=== PATIENT | male | born 1945 | race Caucasian/White ===

== ENCOUNTER 2016-03-19 12:41 | Outpatient (CLI) | payer MEDICARE, OTHER | END 2016-03-19 12:42 | disposition home or self-care (01) | DX: Z13.6 Encounter for screening for cardiovascular disorders (principal) ==

== ENCOUNTER 2016-12-19 13:00 | Outpatient (CLI) | payer MEDICARE, OTHER ==
--- NOTE | 2016-12-19 15:47 | XRAY Report ---
TWO VIEW CHEST: 12/19/2016 CLINICAL INDICATION: Chest discomfort. FINDINGS: Frontal and lateral views of the chest demonstrate a normal cardiac silhouette. The lungs are clear. No effusion or pneumothorax is present. IMPRESSION: NORMAL CHEST. JOB #: [id number] EXT JOB #:[id number]
== END 2016-12-19 13:01 | disposition home or self-care (01) ==
LOC: DI 13:00
PROVIDERS: ATTEND Internal Medicine
DX: R07.89 Other chest pain (principal)
CPT/HCPCS: 71020

== ENCOUNTER 2017-07-23 12:24 | Outpatient (CLI) | payer MEDICARE, OTHER ==
--- NOTE | 2017-07-23 16:08 | CARDIAC PROCEDURE NOTE ---
DATE OF SERVICE: 07/23/2017 Provider: YG Castillo PRIMARY CARE PHYSICIAN: Bhavesh Roach MD PROCEDURE: Cardiac treadmill stress test. PROCEDURE SYMPTOMS: Chest pain with exertion. CARDIAC RISK FACTORS: Include age, hyperlipidemia, and diabetes. PREVIOUS CARDIAC PROCEDURES: ETT. CLINICAL HISTORY: A 72-year-old male without known coronary artery disease. INITIAL RESTING VITAL SIGNS: BP 126/70, heart rate 91, height 72 inches, weight 205 pounds. PROCEDURE AND FINDINGS: The patient identity and date verified. Consent signed. The patient performed treadmill exercise using a Ed protocol, completing 7 minutes 7 seconds, and completing an estimated workload of 9.0 metabolic equivalents. Maximal blood pressure was 178/82 with a heart rate of 135 beats per minute or 90% of maximum predicted heart rate for age. The blood pressure response to exercise was within normal limits. The patient stopped because he was tiring and his shoulders hurt. Resting ECG demonstrated normal sinus rhythm with no abnormality. Maximum ST segment depression was 1 mm and horizontal. There was no ectopy. He revealed mild chest pain beginning about half way through exercise. FINAL IMPRESSION 1. Positive stress electrocardiogram for ischemia by electrocardiographic criteria. 2. Positive stress test clinically for angina. 3. No ectopy nor arrhythmia. 4. Recommend additional cardiac testing. TD: 07/23/2017 14:03 MTDTaylor
[2017-07-27 10:33] VITALS: BP 122/82
--- NOTE | 2017-07-27 16:34 | XRAY Report ---
CARDIOVASCULAR TREADMILL TEST: There was no imaging performed for this exam. Procedure notes and results available in the EMR. BRIGIDA
== END 2017-07-23 12:25 | disposition home or self-care (01) ==
LOC: DI 12:24
PROVIDERS: ATTEND Internal Medicine
DX: R07.9 Chest pain, unspecified (principal)
CPT/HCPCS: 93016; 93017; 93018

== ENCOUNTER 2017-10-23 09:01 | Outpatient (CLI) | payer MEDICARE, OTHER ==
[2017-10-23 10:06] LABS: ALT ALANINE AMINOTRANSFERASE 24 IU/L (10-60); AST ASPARTATE AMINOTRANSFERASE 22 IU/L (10-42); CHOL/HDL RATIO 2.1 (<5.0); CHOLESTEROL 92 mg/dL; HDL CHOLESTEROL 44 mg/dL; LDL CHOLESTEROL,CALCULATED 35 mg/dL; LDL/HDL RATIO 0.8 (<3.6); VLDL CHOLESTEROL 13 mg/dL
== END 2017-10-23 09:02 | disposition home or self-care (01) ==
LOC: LAB 09:01
PROVIDERS: ATTEND Internal Medicine Cardiovascular Disease
DX: E78.4 Other hyperlipidemia (principal); I25.10 Atherosclerotic heart disease of native coronary artery without angina pectoris
CPT/HCPCS: 36415; 80061; 83721; 84450; 84460

== ENCOUNTER 2023-11-03 11:35 | Emergency (ER) | payer MEDICARE, OTHER ==
--- NOTE | 2023-11-03 11:50 | ED Physician Documentation ---
PD HPI Fall - Stated complaint Stated Complaint: BACK PX POST FALL - History obtained from History obtained from: Patient - Additional information Additional information: 78-year-old gentleman with history of coronary disease and stents had a trip and fall last night hitting the ground with his posterior left chest with severe pain in that area. No other injuries. PD PAST MEDICAL HISTORY - Past Medical History Endocrine/Autoimmune: Type 2 diabetes GI: GERD HEENT: Chronic hearing loss Musculoskeletal: Osteoarthritis, Chronic back pain - Past Surgical History General: Appendectomy - Present Medications Home Medications: Ambulatory Orders Medication Instructions Recorded Confirmed Aspirin [Spink Aspirin] 81 mg PO DAILY 11/03/23 11/03/23 Atorvastatin Calcium 40 mg PO DAILY 11/03/23 11/03/23 Metoprolol Succinate [Toprol Xl] 25 mg PO DAILY 11/03/23 11/03/23 metFORMIN [Glucophage] 500 mg PO DAILY 11/03/23 11/03/23 oxyCODONE [Roxicodone] 5 mg PO Q4-6H PRN #30 tablet 11/03/23 - Allergies Allergies/Adverse Reactions: Allergies Allergy/AdvReac Type Severity Reaction Status Date / Time No Known Drug Allergies Allergy Verified 11/03/23 11:51 PD ED PE NORMAL - Vitals Vital signs reviewed: Yes - General General: Alert and oriented X 3, No acute distress - HEENT HEENT: PERRL, EOMI - Neck Neck: Supple, no meningeal sign, No bony TTP - Cardiac Cardiac: RRR, No murmur - Respiratory Respiratory: No respiratory distress, Clear bilaterally - Abdomen Abdomen: Non tender - Back Back: No spinal TTP, Other (To the left posterior chest and the posterior axillary line there is an area of bruising and severe tenderness over the lower ribs.) - Neuro Neuro: Alert and oriented X 3 Results - Vitals Vitals: Vital Signs - 24 hr 11/03/23 11/03/23 11/03/23 11:45 13:51 14:32 Temperature 36.5 C 36.6 C Heart Rate 97 74 72 Respiratory 20 16 15 Rate Blood Pressure 181/79 H 143/76 H 138/80 H O2 Saturation 98 95 95 Oxygen O2 Source Room air - Labs Labs: Laboratory Tests 11/03/23 11/03/23 12:24 12:24 WBC 8.5 RBC 4.74 Hgb 15.4 Hct 45.9 MCV 96.8 H MCH 32.5 H MCHC 33.6 RDW 11.8 L Plt Count 192 MPV 10.9 Neut # (Auto) 6.3 Lymph # (Auto) 1.3 L [place] # (Auto) 0.8 Eos # (Auto) 0.0 Baso # (Auto) 0.1 Absolute Nucleated RBC 0.00 Nucleated RBC % 0.0 Sodium 137 Potassium 4.0 Chloride 102 Carbon Dioxide 29 Anion Gap 6.0 BUN 17 Creatinine 0.9 Estimated GFR (MDRD) 82 L Glucose 162 H Calcium 9.0 Total Bilirubin 2.0 H AST 18 ALT 29 Alkaline Phosphatase 37 L Total Protein 7.0 Albumin 4.2 Globulin 2.8 Albumin/Globulin Ratio 1.5 - Rads (name of study) ct CHEST Relevant Findings:: Final report received (CT chest demonstrates mildly displaced fractures of the left 11th and 12th ribs with L1 and L2 transverse process fractures. Severe coronary calcifications, nonobstructing stone at the inferior pole of the right kidney, 9 mm), EMP independent interpretation of test PD Medical Decision Making - ED course ED course: He presents with left-sided back injuries after a ground-level fall. He has 2 rib fractures and 2 transverse process fractures. Incidental findings including coronary calcifications, right nephrolith etc. were discussed with patient and . Feeling better after narcotic analgesia here and discussed multimodal pain management at home. Given incentive spirometer. Departure - Departure Disposition: 01 Home, Self Care Clinical Impression: Fracture of rib Qualifiers: Encounter type: initial encounter Rib fracture type: multiple ribs Fracture type: closed Laterality: left Qualified Code(s): S22.42XA - Multiple fractures of ribs, left side, initial encounter for closed fracture Lumbar transverse process fracture Qualifiers: Encounter type: initial encounter Fracture type: closed Qualified Code(s): S32.009A - Unspecified fracture of unspecified lumbar vertebra, initial encounter for closed fracture Condition: Good Record reviewed to determine appropriate education?: Yes Instructions: ED Fx Rib Prescriptions: oxyCODONE [Roxicodone] 5 mg PO Q4-6H PRN #30 tablet PRN Reason: Pain Comments: As discussed, you have 2 rib fractures and 2 transverse process fractures. Incidental findings included coronary artery calcifications, a 9 mm right kidney stone and a mild elevation in bilirubin that I think is probably chronic at 2.0. All of these findings should be discussed with your primary care physician in follow-up. I sent the prescription electronically to the [facility] pharmacy here in [place] at the corner of [address] [facility]. In addition to the narcotics you should take Tylenol, 2 extra strength 3-4 times a day as your baseline and lidocaine patches which are available [id number]. Call your doctor to arrange a follow-up appointment, make the next available appointment. In the interim, return anytime if worse or if new symptoms develop. I am prescribing a short course of narcotic pain medication for you. These are potentially dangerous and addictive medications that should be used carefully. These medications may constipate you. Take an dyvi-ysg-wbkfmvs stool softener (docusate) twice daily with plenty of water while taking these medications. If you go 24 hours without a bowel movement, take [id number] miralax, per package instructions. Do not drink or drive while taking these medications. If you received narcotic or sedating medications while in the emergency department, do not drive for 24 hours. Store this medication in a safe, secure place and out of reach of children. It is a violation of federal law to give or sell this medication to another person or to use in a manner other than prescribed. The ED will not refill narcotic prescriptions, including prescriptions lost or stolen. To dispose of unwanted medications: 1. [facility] provides a [facility] box for medication in pill form only (no liquids) 8:00 am to 4:30 p.m. Thursday-Thursday in the lobby of the [facility], [address] [place] [address]. Empty pills into ziplock bag before disposal. Call [phone] for information. 2.[employer] is a free service available to all [facility] residents. Go to [email or web address] Note that many narcotic pain relievers also contain Tylenol/acetaminophen. Please ensure that your total dose of acetaminophen from all sources does not exceed 3 g (3000 mg) per day. Forms: PCP List Discharge Date/Time: 11/03/23 14:36
[2023-11-03] MEDS: IBUPROFEN 800 MG TABLET PO STA (12:07)
[2023-11-03] MEDS: oxyCODONE 5 MG TABLET PO STA (12:07)
[2023-11-03 12:37] LABS: BASOPHILS # (AUTO) 0.1 10^3/uL (0.0-0.1); BASOPHILS % (AUTO) 0.6 %; EOSINOPHILS % (AUTO) 0.4 %; HCT - HEMATOCRIT 45.9 % (42.0-52.0); HGB - HEMOGLOBIN 15.4 g/dL (14.0-18.0); LYMPHOCYTES # (AUTO) 1.3 10^3/uL (1.5-3.5); LYMPHOCYTES % (AUTO) 15.7 %; MEAN CORPUSCULAR HEMOGLOBIN 32.5 pg (27.0-31.0); MEAN CORPUSCULAR HGB CONC 33.6 g/dL (32.0-36.0); MEAN CORPUSCULAR VOLUME 96.8 fL (80.0-94.0); MEAN PLATELET VOLUME 10.9 fL (7.4-11.4); MONOCYTES # (AUTO) 0.8 10^3/uL (0.0-1.0); NEUTROPHILS # (AUTO) 6.3 10^3/uL (1.5-6.6); NEUTROPHILS % (AUTO) 74.1 %; PLT - PLATELET COUNT 192 10^3/uL (130-450); RED BLOOD COUNT 4.74 10^6/uL (4.70-6.10); RED CELL DISTRIBUTION WIDTH 11.8 % (12.0-15.0); WHITE BLOOD COUNT 8.5 x10^3/uL (4.8-10.8)
[2023-11-03 12:44] LABS: ALBUMIN 4.2 g/dL (3.2-5.5); ALBUMIN/GLOBULIN RATIO 1.5 (1.0-2.2); CREATININE 0.9 mg/dL (0.6-1.3)
--- NOTE | 2023-11-03 13:08 | CT Report ---
PROCEDURE: Chest WO INDICATIONS: Post L rib inj TECHNIQUE: A CT scan of the chest was performed. Intravenous contrast media was not administered. Images were re corded and evaluated at appropriate window settings. Reformats: axial MIP of the chest, coronal and s agittal. For radiation dose reduction, the following was used: automated exposure control, adjustment of mA and/or kV according to patient size. COMPARISON: None. FINDINGS: Image quality: Diagnostic. Chest wall and lower neck: No thyroid nodule which requires sonographic follow up. No axillary or sup raclavicular adenopathy by size. Lungs and pleura: No consolidation. No pleural effusions. No pneumothorax. No suspicious pulmonary n odules which require follow up. Mild dependent atelectasis. Mediastinum: Heart size is normal. Severe coronary artery calcifications. No pericardial effusion. No large vessel abnormality. Atherosclerotic vascular calcifications. No mediastinal adenopathy by size criteria. Bones: Mildly displaced left L1 and L2 transverse process fracture. Mildly displaced fractures of the posterior left 11th and 12th ribs. Degenerative changes of the spine. Upper Abdomen: Simple appearing hepatic cysts. Nonobstructing stone at the inferior pole of the right kidney measuring 9 mm.. IMPRESSION: 1.Mildly displaced fractures of the posterior left 11th and 12th ribs. Mildly displaced left L1 and L 2 transverse process fractures. Please note, transverse processes below L2 are not included within th e ysvep-lg-anwe. 2.Severe coronary calcifications. 3.Non obstructing stone at the inferior pole the right kidney measuring 9 mm. Reviewed by: Andrews Fisher MD on 11/03/2023 1:07 PM PDT Approved by: Andrews Fisher MD on 11/03/2023 1:07 PM PDT Station ID: [id number]
--- NOTE | 2023-11-03 13:50 | CT Report ---
PROCEDURE: Lumbar Spine WO INDICATIONS: back inj TECHNIQUE: Noncontrast 3 mm thick sections acquired from the T12 level to the sacrum. Sagittal and coronal refo rmats were constructed. For radiation dose reduction, the following was used: automated exposure co ntrol, adjustment of mA and/or kV according to patient size. COMPARISON: None. FINDINGS: Image quality: Excellent. Bones: Mild dextrocurvature. Grade 1 anterolisthesis of L2 on L3.. No acute vertebral body compressi on fractures. No suspicious lytic or blastic bony lesions. Degenerative changes of the spine, most s evere at L2-L3 and L5-S1 with severe disc height loss, vacuum disc phenomenon, degenerative endplate changes and spurring. Facet arthropathy, most pronounced within the lower lumbar spine. No pars defec ts. Redemonstration of mildly displaced left L1 and L2 transverse process fractures. Mildly displaced lef t posterior 11th and 12th rib fractures. No other acute fractures are seen. Soft tissues: No retroperitoneal masses or hematomas. Visualized aorta is normal in caliber. Athero sclerotic vascular ossifications. Nonobstructing 9 mm stone at the inferior pole of the right kidney. IMPRESSION: 1.Redemonstration of mildly displaced left L1 and L2 transverse process fractures and left posterior 11th and 12th rib fractures. No other acute fractures are seen. 2.Multilevel degenerative changes of the lumbar spine, severe at L2-L3 and L5-S1. Reviewed by: Andrews Fisher MD on 11/03/2023 1:49 PM PDT Approved by: Andrews Fisher MD on 11/03/2023 1:49 PM PDT Station ID: [id number]
[2023-11-03 14:45] VITALS: BP 138/80; O2SAT 95
== END 2023-11-03 14:36 | disposition home or self-care (01) ==
LOC: ED 11:35
DX: S22.42XA Multiple fractures of ribs, left side, initial encounter for closed fracture (principal); S32.019A Unspecified fracture of first lumbar vertebra, initial encounter for closed fracture; S32.029A Unspecified fracture of second lumbar vertebra, initial encounter for closed fracture; W01.190A Fall on same level from slipping, tripping and stumbling with subsequent striking against furniture, initial encounter; I25.10 Atherosclerotic heart disease of native coronary artery without angina pectoris; N20.0 Calculus of kidney; E80.6 Other disorders of bilirubin metabolism
CPT/HCPCS: 36415; 71250; 72131; 80053; 85025; 99284; A9270